=== PATIENT | male | born 1950 | race Two or more races ===

== ENCOUNTER → 2017-01-24 | Outpatient (CLI) | payer MEDICARE, MEDICAID ==
[~2017-01-24] VITALS: Ht 182.9 cm; Wt 86.2 kg
[~2017-01-24] MED LIST: ADENOSINE 87 MG in GIVE UN-DILUTED 0 ML IV ONE; ADENOSINE 90 MG/30 ML INJ IV ONE
== END | disposition home or self-care (01) ==
LOC: Rad HDHVI 10:13
PROVIDERS: ATTEND Internal Medicine Cardiovascular Disease
DX: Z01.810 Encounter for preprocedural cardiovascular examination (principal); I20.9 Angina pectoris, unspecified
CPT/HCPCS: 78452; 93005; 96374; 96375; A9500; J0153